=== PATIENT | male | born 1965 | race Caucasian/White ===

== ENCOUNTER 2017-02-20 21:52 | Inpatient (IN) | payer OTHER ==
[~2017-02-20] VITALS: Ht 175.3 cm; Wt 115.7 kg
[~2017-02-20 21:52] MED LIST: ALEVE220 MG PO; AMARYL2 MG PO; FEOSOL325 MG PO; GLUCOPHAGE1000 MG PO; NON-ASPIRIN PA325 MG PO; PROZAC40 MG PO
[2017-02-21 12:01] VITALS: BP 137/78
[2017-02-21 12:46] LABS: POINT-OF-CARE METER ID UU14174212
[2017-02-21 17:22] LABS: POINT-OF-CARE METER ID UU13113675; POINT-OF-CARE USER ID 515036437
[2017-02-21 18:11] VITALS: BP 119/76
[2017-02-21 18:33] LABS: POINT-OF-CARE METER ID UU13113712
[2017-02-21 20:30] VITALS: BP 92/61
[2017-02-21 22:06] LABS: POINT-OF-CARE METER ID UU13113712
[2017-02-21 23:44] VITALS: BP 123/69
[2017-02-22 04:04] VITALS: BP 116/78
[2017-02-22 07:14] LABS: HEMATOCRIT 40.3 % (38.0-50.0); MCV 88.6 FL (86-99)
[2017-02-22 07:35] LABS: POINT-OF-CARE METER ID UU13113712
[2017-02-22 07:44] LABS: ANION GAP 7 MEQ/L (2-14); CHLORIDE 104 MEQ/L (99-109); GFR ESTIMATE (CALCULATED) > 59 mL/min/; GLUCOSE 166 mg/dL (70-99); POTASSIUM 4.6 MEQ/L (3.7-5.4); SAMPLE HEMOLYSIS CHECK 0; SAMPLE ICTERIC CHECK 0; SAMPLE LIPEMIA CHECK 0; SODIUM 136 MEQ/L (136-147); UREA NITROGEN (BUN) 21 mg/dL (9-23)
[2017-02-22 08:00] VITALS: BP 108/72
[2017-02-22 12:17] VITALS: BP 125/69
[2017-02-22 16:17] VITALS: BP 142/79
[2017-02-22 16:45] LABS: POINT-OF-CARE METER ID UU13113712
[2017-02-22 20:33] VITALS: BP 151/69
[2017-02-23 00:10] VITALS: BP 152/77
[2017-02-23 04:15] VITALS: BP 130/73
[2017-02-23 06:20] LABS: HEMATOCRIT 38.9 % (38.0-50.0); MCV 86.6 FL (86-99)
[2017-02-23 08:33] VITALS: BP 145/71
[2017-02-23] MEDS ORDERED: ELIQUIS2.5 MG PO (11:58)
[2017-02-23] MEDS ORDERED: OXYCODONE HCL5 MG PO (11:58)
[2017-02-23] MEDS ORDERED: CELECOXIB200 MG PO (11:58)
[2017-02-23 12:00] VITALS: BP 143/69
== END 2017-02-23 16:09 | DRG 470 ==
LOC: ENRESERV 21:52 → 2SOUTH 02-21 10:14 → 3WEST 02-21 17:47
PROVIDERS: Orthopaedic Surgery
PROC: 0SRC0J9 Replacement of Right Knee Joint with Synthetic Substitute, Cemented, Open Approach (ICD-10-PCS; principal; 2017-02-21)
DX: M17.31 Unilateral post-traumatic osteoarthritis, right knee (principal); M17.11 Unilateral primary osteoarthritis, right knee; E11.9 Type 2 diabetes mellitus without complications; M22.41 Chondromalacia patellae, right knee; M23.51 Chronic instability of knee, right knee; Z79.84 Long term (current) use of oral hypoglycemic drugs; E66.01 Morbid (severe) obesity due to excess calories; G47.33 Obstructive sleep apnea (adult) (pediatric); F52.21 Male erectile disorder; Z82.49 Family history of ischemic heart disease and other diseases of the circulatory system; Z83.3 Family history of diabetes mellitus; Z68.37 Body mass index [BMI] 37.0-37.9, adult
CPT/HCPCS: 80048; 82948; 85014; 85018; C1713; J0131; J0690; J1885; J2250; J2405; J2795; J3010; J7030; J7050; J7120; L1820